=== PATIENT | female | born 1995 | race Caucasian/White ===

== ENCOUNTER 2022-03-08 22:46 | Emergency (ER) | payer MEDICAID, SELFPAY ==
[2022-03-08 22:48] VITALS: BP 152/97; PULSE 97; RESP 18; TEMP 36.5; O2SAT 100; BMI 34.1
--- NOTE | 2022-03-08 23:13 | US_ITS ---
EXAM: US OB. HISTORY: vag bleeding, preg- light brownish spotting just today no pain FINDINGS: An intrauterine possible early gestational sac is identified with mean diameter of 0.29 cm corresponding to a gestational age of 5 weeks and 0 days. A pole and yolk sac are not visualized. The ovaries are normal is size bilaterally. Several small ovarian follicles are present bilaterally. No gross free pelvic fluid. CONCLUSION: Intrauterine possible early gestational sac. A pole is not visualized which could be secondary to early dates. However, ectopic with a pseudosac is not excluded and correlation with serial beta hCG is recommended. Electronically Signed: Prashant East MD at 0:38 EST , US/Transvaginal w/Preg US IMPRESSION: undefined
--- NOTE | 2022-03-08 23:14 | ED.VIS.FEGU ---
HPI HPI - Female History of Present Illness Chief Complaint: Vag Bld, Preg Informant: patient Pain Pain: Positive for Pelvic Pain Onset: Today Context: Gradual Onset Quality: Positive for Aching Location: - (pelvis bilat) Current Severity: Gone Maximum Severity: Mild Worsened by: - (nothing) Relieved by: - (nothing; went away on its own) Bleeding Issue: Positive for Vaginal bleeding Onset: Today Current Severity: Spotting Maximum Severity: Spotting Associated Symptoms P: 0 Narrative Narrative: Patient had a recent positive serum test, her last normal menstrual cycle started on 02/03, however she has a history of polycystic ovarian disease, but assuming these dates are correct she is about 4 weeks along. She has not had an ultrasound yet. She started spotting tonight, she had some pelvic pain earlier that was bilateral but that is gone now. No other systemic symptoms, no urinary symptoms or fevers. [facility] Medical History (Updated 03/09/22 @ 00:[address] Pranav Aaron MD) PCOS (polycystic ovarian syndrome) Allergy/AdvReac Type Severity Reaction Status Date / Time Penicillins Allergy Hives Verified 03/08/22 22:47 Sulfa (Sulfonamide Allergy Hives Verified 03/08/22 22:47 Antibiotics) Social History Smoking Status: Unknown if ever smoked ROS ROS ED Constitutional Constitutional ED: Denies chills or fever(s) Eyes Eyes: Denies change in vision or diplopia ENT ENT ED: Denies rhinorrhea or sore throat Cardiovascular Cardiovascular: Denies chest pain or palpitations Respiratory/Chest Respiratory/Chest: Denies cough or dyspnea Gastrointestinal Gastrointestinal: Reports abdominal pain; Denies diarrhea, nausea or vomiting Genitourinary Genitourinary ED: Reports vaginal bleeding; Denies dysuria, hematuria or urinary frequency Musculoskeletal Musculoskeletal: Denies back pain or neck pain Integumentary Denies abscess or rash Neurologic Neurologic: Denies headache(s), paresthesias or weakness Psychiatric Psychiatric: Denies anxiety or suicidal thoughts EXAM Physical Exam Const Vital Signs: 03/08/22 22:48 Temperature 97.7 F L Temperature Source Temporal Pulse Rate 97 Respiratory Rate 18 Blood Pressure 152/97 H Blood Pressure Mean 115 Pulse Ox 100 Oxygen Delivery Method Room Air Positive well nourished and well developed General Appearance ED: well developed and NAD HEENT Reports moist mucous membranes normocephalic and atraumatic Eyes PERRL and EOMs intact bilaterally Neck full ROM and supple Resp normal respiratory effort and clear to auscultation bilaterally Cardio regular rate, regular rhythm and no murmurs GI non-tender and non-distended Auscultation: normoactive bowel sounds Palpation: soft Speculum Exam - Vagina: vaginal bleeding Back/Spine no CVA tenderness General Back: other FROM Extremity normal to inspection General Extremety ED: Negative for edema, pulses abnormal or tenderness General Extremity: Negative for edema or pulses abnormal Neuro oriented x3, CN's II-XII intact bilaterally and no sensory deficits noted Sensorium / Orientation: awake and alert Motor Exam: strength 5/5 throughout Skin no rashes or lesions noted and no wounds MDM MDM MDM Narrative Medical decision making narrative: Quantitative hCG 921, blood type is O+ so RhoGAM is not indicated. Transvaginal ultrasound was able to be obtained, it shows no definitive intrauterine , possibly an early gestational sac, but no obvious ectopic seen. This patient is to be ruled out for ectopic with a 48-hour repeat quantitative hCG. Discussed with the ASSISTANT WINEMAKER on-call for Raven Lal, we will order the repeat lab to be obtained here and sent to their office and they will contact her with the results and further instructions 2 days from now. Patient is comfortable with that plan, we discussed reasons to return. Lab Data Attestation: I reviewed the patient's lab results. Labs: Laboratory Results - last 24 hr 03/08/22 03/08/22 23:19 23:19 HCG, Quant 921 H Blood Type O POSITIVE Radiography Diagnostic Testing: Clinical Impression(s) from Imaging Studies Obstetrics Ultrasound 03/08/22 23:13 IMPRESSION: undefined Discharge Plan Triage Chief Complaint: Vag Bld, Preg ED Provider: Pranav Aaron Dx/Rx/DC Orders Clinical Impression: , threatened, early Instructions: ED Possible Miscarriage ... Other Ambulatory Orders: hCG Titer Quant., Serum (Routine) Timeframe: 2 Days Facility: [facility] - Location: Laboratory Ordered By: Dr. Pranav Aaron Primary Care Provider: Raven Lal Referrals: Raven Lal CNM [Primary Care Provider] - 2 Days (Will call you with lab results and further instructions on Monday) Disposition Disposition: Home, Self Care Discharge Date/Time: 03/09/22 01:07
[2022-03-08 23:46] LABS: hCG Titer Quant., Serum 921 mIU/mL (1-3)
[2022-03-09 00:46] LABS: Mucous, Urine 0 SEEN /hpf (<or=2+); Red Blood Cells-Urine 0 SEEN /hpf (0-5)
[2022-03-09 00:47] LABS: Color, Urine Yellow (Yellow); Glucose, Dipstick Normal (Normal); Ketone-Dipstick Negative (Negative); Leukocyte Esterase-Dipstick 25 /ul (Negative); Nitrite-Dipstick Negative (Negative); Occult Blood-Urine 10 /ul (Negative); Protein-Dipstick Negative (Negative); Urine Bilirubin Dipstick Negative (Negative); Urine Clarity Clear (Clear); Urine Urobilinogen Normal (Normal)
[2022-03-09 01:07] LABS: Bacteria 1+ /hpf (None Seen); Squamous Epithelial Cells - UA 0-5 SEEN /hpf (5-10); White Blood Cells 0-5 SEEN /hpf (0-5)
== END 2022-03-09 01:07 | disposition home or self-care (01) ==
PROVIDERS: Emergency Provider Emergency Medicine; PCP Advanced Practice Midwife; Visit Provider Emergency Medicine
DX: O20.0 Threatened abortion (principal); Z3A.01 Less than 8 weeks gestation of pregnancy
CPT/HCPCS: 36415; 76817; 81001; 84702; 86900; 86901; 99282

== ENCOUNTER 2022-11-04 09:30 | Inpatient (IN) | payer MEDICAID, SELFPAY ==
[2022-11-04] VITALS (18 sets, daily range): BP systolic 100–138; BP diastolic 57–81; PULSE 76–105; RESP 16–18; TEMP 36.1–36.7; O2SAT 97–100; BMI 38.0
[2022-11-04] MEDS: Lactated Ringers 1,000 ML 999 ML IV (10:05)
[2022-11-04 10:25] LABS: Absolute Lymphocyte Count 1.48 X10^3/uL (0.83-4.51); Absolute Neutrophil Count 6.7 X10^3/uL (2.0-7.7); Basophil# 0.02 X10^3/uL; Basophil% 0.2 % (0-1); Eosinophil# 0.13 X10^3/uL; Eosinophils% 1.4 % (0-5); Hematocrit 35.1 % (37-47); Hemoglobin 11.2 g/dL (12.0-15.0); Lymphocyte # 1.48 X10^3/ul (0.83-4.51); Lymphocyte % 16.2 % (19-41); Mean Corp Hgb Conc 31.9 g/dL (32-36); Mean Corpuscular Hgb 28.2 pg (27.0-32.0); Mean Corpuscular Volume 88.4 fL (81-99); Mean Platelet Vol. 10.9 fl (6.2-12.0); Monocyte# 0.72 X10^3/uL; Monocyte% 7.9 % (0-10); NRBC Flagged by Analyzer 0 % (0-5); Neutrophil # 6.73 X10^3/uL (2.7-7.7); Platelet Count 232 K/mm3 (150-450); RBC Distribution Width CV 12.5 % (11.6-14.6); RBC Distribution Width SD 39.9 fl (35.1-43.9); Red Blood Count 3.97 M/mm3 (4.2-5.4); White Blood Count 9.1 K/mm3 (4.4-11.0)
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
[2022-11-04] MEDS: Acetaminophen 500 MG Tablet 1000 MG PO ×3 (10:39→22:33)
[2022-11-04 11:08] LABS: Syphilis Antibodies Non-reactive
[2022-11-04] MEDS: Lactated Ringers 1,000 ML 150 ML IV (11:10)
[2022-11-04] MEDS: Sodium Citrate/Citric Acid 30 ML UDC PO (11:47)
[2022-11-04] MEDS: Clindamycin 900 MG/50 ML BAG 75 MG IV (12:10)
[2022-11-04] MEDS: Methylergonovine 0.2 MG/ML Ampul IM (12:30)
--- NOTE | 2022-11-04 13:05 | OP.PCM_ITS ---
Problems Associated Problem List Diagnoses (1) Accelerated growth of fetus: (2) History of depression: (3) Mert's thyroiditis: (4) Obesity affecting : (5) Breech presentation: (6) 39 weeks gestation of : Report of Operation Date of Procedure: 11/04/22 Pre-Operative Diagnosis: 39 week gestation, single IUP, ashu breech presentation, accelerated growth of fetus, obesity affecting Post-Operative Diagnosis: As above Surgery/Procedure Performed:: PLTCS via pfannenstiel incision Description of Surgical Findings:: VMI in ashu breech presentation. Clear fluid. Normal appearing placenta. Normal appearing uterus and bilateral adnexa. Apgars 9, 9. Infant weight 9 lb 2 oz. Surgeon: Radha Vargas solar photovoltaic electrician: Pily BANKS Type of Anesthesia: Spinal Special Medications: None Specimen's removed: Placenta Drains: Morales Estimated Blood Loss (mL): 800 Fluids Replaced: 1000 mL Description of Procedure: The patient was taken to the operating room where spinal anesthesia was found be adequate. She was prepped and draped in the dorsal supine position with a leftward tilt. A Pfannenstiel skin incision was made with a scalpel and this was carried down to the underlying layer of fascia. The fascia was incised in midline. The fascia was extended laterally using Mcdonald scissors. The fascia was minimally dissected off of the rectus muscles in a cephalad direction. The rectus muscles were then in the midline. The peritoneum was entered bluntly with good visualization of the bladder. The peritoneal incision was extended bluntly with lateral traction. A bladder blade was inserted. A low transverse incision was made on the uterus with a scalpel. Membranes were ruptured for clear fluid. The buttocks of the infant was delivered through the hysterotomy, followed by the legs and body of the . The arms were then delivered followed by the head which was maintained in a flexed position. A vigorous viable male was delivered without any force or delay. The cord was clamped and cut after a slight delay and the infant was handed off to awaiting nursery staff. The placenta was removed with manual extraction. The uterus was cleared of all clot debris. The uterus was exteriorized. The hysterotomy was closed with 1-0 Vicryl in a running locked fashion. A second imbricating layer using 1-0 Vicryl was performed. Several additional [id number] sutures were placed for hemostasis. Bilateral adnexa were normal-appearing. The uterus was placed back into the abdomen. Brandon was placed over the hysterotomy and lower uterine segment. Hemostasis was noted. This muscles were hemostatic. The fascia was closed with strata fix in a running fashion. The subcutaneous space was irrigated and hemostatic. The subcutaneous space was reapproximated using 3-0 Vicryl. The skin was closed with 4 Monocryl in a subcuticular fashion. A dressing was placed. Instrument, sharp, sponge counts were correct and patient was taken to the recovery room in stable condition. The printer's assistant Pily BANKS was present for the entire case and assisted with draping the patient, delivery of the infant, closure. Grafts/Implants Used: None Procedure Start Time: 12:18 Complications None Admit VTE Documentation VTE Present on Admission: No VTE Mechan Device Prophylaxis: SCD's
[2022-11-04] MEDS: Oxytocin 15 Units/NS 250ml 15 UNITS/250 ML IV.SOLN 83 UNITS IV (13:20)
[2022-11-04] MEDS: Ketorolac 30 MG/ML Syringe IV ×2 (14:03→19:43)
[2022-11-04] MEDS: Lactated Ringers 1,000 ML 100 ML IV (16:28)
[2022-11-04] MEDS: 0.9% Saline Lock 10 ML Syringe IV (19:44)
[2022-11-04] MEDS: SimETHICONE 80 MG Chewable Tablet PO (23:39)
[2022-11-05 01:26] VITALS: RESP 16; O2SAT 99
[2022-11-05] MEDS: Ketorolac 30 MG/ML Syringe IV ×2 (02:17→07:21)
[2022-11-05] MEDS: 0.9% Saline Lock 10 ML Syringe IV ×2 (02:17→07:21)
[2022-11-05] MEDS: Acetaminophen 500 MG Tablet 1000 MG PO ×4 (04:18→22:41)
[2022-11-05 04:21] VITALS: BP 102/58; PULSE 86; RESP 16; TEMP 36.1
[2022-11-05 06:16] LABS: Hematocrit 28.1 % (37-47); Hemoglobin 9.2 g/dL (12.0-15.0); Mean Corp Hgb Conc 32.7 g/dL (32-36); Mean Corpuscular Hgb 28.8 pg (27.0-32.0); Mean Corpuscular Volume 87.8 fL (81-99); Mean Platelet Vol. 10.2 fl (6.2-12.0); Platelet Count 206 K/mm3 (150-450); RBC Distribution Width CV 12.5 % (11.6-14.6); RBC Distribution Width SD 40.2 fl (35.1-43.9); White Blood Count 16.4 K/mm3 (4.4-11.0)
[2022-11-05] MEDS: Levothyroxine 75 MCG Tablet PO (06:16)
--- NOTE | 2022-11-05 07:54 | PN.OBGYN_ITS ---
Subjective Subjective Patient seen at bedside. Feeling well. Pain is controlled with Motrin and Tylenol PO. Patient ambulating and voiding without difficulty. Passing flatus. Denies any CP, SOB or dizziness. Objective Data Objective Data Vital Signs: Vital Signs Temp Pulse Resp BP Pulse Ox O2 Del Method 97 F L 86 16 102/58 L 99 Room Air 11/05/22 04:21 11/05/22 04:21 11/05/22 04:21 11/05/22 04:21 11/05/22 01:26 11/05/22 04:21 Oxygen Delivery Method Room Air Weight: 242 lb 8.136 oz Body Mass Index (BMI) 38.0 Intake & Output: Intake and Output for Last 24 Hours 11/03/22 11/04/22 11/05/22 23:59 23:59 23:59 Intake Total 2311.08 / 2311.08 Output Total 1900 / 1900 1300 / 1300 Balance 411.08 / 411.08 -1300 / -1300 Lab / Micro Data 11/05/22 06:08 Labs: Laboratory Results - last 24 hr 11/04/22 10:05: WBC 9.1, RBC 3.97 L, Hgb 11.2 L, Hct 35.1 L, MCV 88.4, MCH 28.2, MCHC 31.9 L, RDW Std Deviation 39.9, RDW Coeff of Alejandro 12.5, Plt Count 232, MPV 10.9, Immature Gran % (Auto) 0.300, Neut % (Auto) 74.0 H, Lymph % (Auto) 16.2 L, [place] % (Auto) 7.9, Eos % (Auto) 1.4, Baso % (Auto) 0.2, Absolute Neuts (auto) 6.7, Absolute Lymphs (auto) 1.48, Nucleated RBC % 0, Syphilis Total Ab Non- reactive, Blood Type O POSITIVE, Antibody Screen NEGATIVE 11/05/22 06:08: WBC 16.4 H, RBC 3.20 L, Hgb 9.2 L, Hct 28.1 L, MCV 87.8, MCH 28.8, MCHC 32.7, RDW Std Deviation 40.2, RDW Coeff of Alejandro 12.5, Plt Count 206, MPV 10.2 ROS Eyes Eyes: Denies blurry vision, change in vision or spots in vision ENT HEENT: Denies dizziness or headache(s) Cardiovascular Cardiovascular: Denies abdominal pain, chest pain or dyspnea Respiratory/Chest Respiratory/Chest: Denies cough, dyspnea, shortness of breath at rest or shortness of breath with exertion Gastrointestinal Gastrointestinal: Denies abdominal pain, diarrhea or vomiting Genitourinary Genitourinary: Denies change in urinary stream, difficulty urinating or dysuria Musculoskeletal Musculoskeletal: Reports none Integumentary Integumentary: Denies rash Neurologic Neurologic: Denies dizziness, headache(s), memory loss or weakness Physical Exam Const alert and no apparent distress General Appearance: cooperative and comfortable Exam Limitations: no limitations HEENT normocephalic Eyes General Eye: normal appearance of both eyes Neck full ROM General: normal visual inspection Chest Chest: symmetrical chest wall rise Resp normal respiratory effort and normal air movement Effort and Inspection: symmetric chest movement Auscultation: clear to auscultation bilaterally Cardio regular rate and regular rhythm GI normal to inspection, nondistended, normoactive bowel sounds Back/Spine normal ROM Extremity full ROM and no calf tenderness General Extremity: normal exam except as noted Skin no rashes or lesions noted Neuro CN's II-XII intact bilaterally Psych mental status grossly normal Assessment & Plan (1) Status post primary low transverse section: (2) Care and examination of lactating mother: PLAN: Plan POD 1 Primary C/S Pain control Routine care support Anticipate discharge tomorrow
[2022-11-05] MEDS: SimETHICONE 80 MG Chewable Tablet PO (08:48)
[2022-11-05 08:50] VITALS: BP 105/60; PULSE 70; RESP 16; TEMP 36.1; O2SAT 97
--- NOTE | 2022-11-05 09:19 | CASEMGMT ---
Social Work Assessment Labor and Delivery Unit Date/Time of referral: 11/04/22, 10:05am Referred By: Radha Vargas DO Date/Time of Intervention: 11/05/22, 9:00am Reason for referral: Parent recovery substance use(in referral) hx depression and anxiety, not on medications during but managing fine(as per RN) History obtained from: MOB and FOB Household composition: FOB, MOB, and now baby boy Chiki. They have been 2 years, together 8. Parent/guardian status: Both parents are guardians of baby Chiki Medical history: MOB: obesity, sebas's thyroiditis, anxiety and depression, breech presentation Baby: Chiki born 11/[birth year], 12:26pm, Apgars 9 and 9 at one and five minutes. Birthweight 4150 grams Educational Status: MOB: completed high school. FOB: completed 2 years of college Financial Status: No concerns. FOB works in construction. 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 Both parents plan to return to work supplies: They have all needed supplies including diapers, wipes, clothing, car seat, crib, bassinet. MOB plans to breast feed Childcare/Caregivers: Both grandmothers (MOB and FOB's mothers) plan to babysit. This is their first grandchild on both sides of the family. Transportation: They have 2 vehicles. Programs/Agencies Involved: None Children's Services/Legal issues: None Behavioral Health Issues: Substance abuse--MOB and FOB both deny any substance abuse. MOB's mother and FOB's father are both in recovery from alcohol addiction, both have been in recovery for several years. Mental Health--FOB denies any history of mental health concerns. MOB--history of anxiety and depression. She was taking Buspar and Zoloft before , she stopped during . Initially she states it was difficult but she ended up feeling fine. Pt's states she was concerned about going off of the medication but managed fine. Pt already plans to speak w/her PCP about getting back on medication if needed. Additionally, pt is in therapy at [facility] and plans to continue this. depression/Anxiety/Shaken Baby/Safe Sleeping/Help Me Grow/[facility] Resources: SW gave MOB and FOB resources on all of these topics and reviewed them, in particular reviewed information on PPD and anxiety. Assessment: MOB and FOB open w/SW answered all questions. No concerns for homegoing at this time. FOB changing baby's diaper when SW entered room, then swaddled baby and holding baby. Appropriate in care of infant. Plan: Baby Monet to go home w/FOB and MOB at discharge. No further needs anticipated at this time. BONILLA Carrasco
[2022-11-05] MEDS: Senna/Docusate Sodium 1 Tablet PO (10:31)
[2022-11-05] MEDS: Ibuprofen 600 MG Tablet PO ×2 (13:35→19:45)
[2022-11-05 13:55] VITALS: BP 109/59; PULSE 70; RESP 16; TEMP 36.4
[2022-11-05 19:40] VITALS: BP 108/63; PULSE 79; RESP 18; TEMP 36.9; O2SAT 98
[2022-11-05] MEDS: oxyCODONE 5 MG Tablet PO (23:43)
[2022-11-06 02:51] VITALS: BP 109/58; PULSE 64; RESP 16; TEMP 36.6; O2SAT 96
[2022-11-06] MEDS: Ibuprofen 600 MG Tablet PO ×2 (02:53→08:08)
[2022-11-06] MEDS: Acetaminophen 500 MG Tablet 1000 MG PO ×2 (04:44→10:30)
[2022-11-06] MEDS: Levothyroxine 75 MCG Tablet PO (06:37)
[2022-11-06 08:09] VITALS: BP 116/71; PULSE 77; RESP 16; TEMP 36.3; O2SAT 96
--- NOTE | 2022-11-06 10:06 | PCM.DC.SUM ---
Providers Date of Admission: 11/04/22 Reason For Visit: PRIMARY C SECTION Diagnosis Discharge Diagnosis (1) Status post primary low transverse section: Status: Acute Code(s): Z98.891 - History of uterine scar from previous surgery (2) Care and examination of lactating mother: Status: Acute Code(s): Z39.1 - Encounter for care and examination of lactating mother Plan POD 2 Primary C/S Pain control Routine care Support Medications at Discharge Home Medications levothyroxine 75 mcg tablet (Synthroid) 75 mcg PO DAILY hypothyroidism 11/04/22 acetaminophen 500 mg tablet 1,000 mg (2 x 500 mg) PO Q6H #0 tabs 11/06/22 ibuprofen 600 mg tablet 600 mg PO Q6H #0 tabs 11/06/22 oxycodone 5 mg tablet 5 - 10 mg (1 - 2 x 5 mg) PO Q4H PRN PRN Pain Score 4-10 5 days #14 tabs 11/06/22 sennosides 8.6 mg-docusate sodium 50 mg tablet (Stool Softener-Stimulant Laxative) 1 - 2 tab PO DAILY #0 tabs 11/06/22 Hospital Course Operations section Summary of Care Provided Hospital Course: Patient was for a primary section. Hospital course was uneventful. Patient was seen and evaluated by myself for discharge home. Time spent on discharge was <30 minutes. Physical Exam Narrative Dressing is dry and intact Const alert and no apparent distress General Appearance: cooperative and comfortable Exam Limitations: no limitations HEENT normocephalic Eyes General Eye: normal appearance of both eyes Neck full ROM General: normal visual inspection Chest Chest: symmetrical chest wall rise Resp normal respiratory effort and normal air movement Effort and Inspection: symmetric chest movement Auscultation: clear to auscultation bilaterally Cardio regular rate and regular rhythm GI normal to inspection, nondistended, normoactive bowel sounds Back/Spine normal ROM Extremity full ROM and no calf tenderness General Extremity: normal exam except as noted Skin no rashes or lesions noted Neuro CN's II-XII intact bilaterally Psych mental status grossly normal Weight / BMI Weight Weight: 242 lb 8.136 oz Body Mass Index (BMI) 38.0 ABG / Lab / Microbiology Data 11/05/22 06:08 D/C Instructions Discharge Diet: No restrictions May resume sexual activity in: 6-8 weeks Weight Bearing Status: Weight bearing as tolerated Lifting Restrictions: 20 lbs Call your doctor if your incision/area has: Continuous Slow Oozing, Increased Pain/ Swelling, Increased Redness, Foul Smelling Discharge and Swelling at the incision site Call your doctor if you observe: Fever of 101 or Higher, Inability to urinate, Using more than 1 pad per hour, Shortness of breath, Chest pain, Calf discomfort and Uncontrolled pain Remove Dressing in: 5 days Cleanse incision/area with: Soap & Water and Keep Dressing Clean & Dry Please Follow Up With: Raven Lal CNM When: 1 week in office for incision check or sooner if needed 6 weeks Meaningful Use Info Meaningful Use Diagnoses (Choose all that apply): None applicable Discharge Plan Admission Admit Date/Time: 11/04/22 09:30 Primary Reason for Your Visit: Primary Section Attending Provider: Radha Vargas Instructions Patient Instructions: After a Additional Instructions / Restrictions: Continue vitamin. Discharge Orders/Prescriptions Prescriptions: New acetaminophen 500 mg Tablet 1,000 mg PO Q6H Qty: 0 0RF ibuprofen 600 mg Tablet 600 mg PO Q6H Qty: 0 0RF oxycodone 5 mg Tablet 5 - 10 mg PO Q4H PRN PRN (Reason: Pain Score 4-10) 5 Days Qty: 14 0RF sennosides-docusate sodium [Stool Softener-Stimulant Laxat] 8.6-50 mg Tablet 1 - 2 tab PO DAILY Qty: 0 0RF Continued levothyroxine [Synthroid] 75 mcg tablet 75 mcg PO DAILY Discontinued pantoprazole [Protonix] 20 mg tablet,delayed release (DR/EC) 20 mg PO QHS Referrals / Follow Up: Raven Lal CNM [Med Staff - Adv Practice Prof] - Disposition Disposition (needs filled in before D/C Order can be placed): Home, Self Care
[2022-11-06] MEDS: Senna/Docusate Sodium 1 Tablet PO (10:29)
== END 2022-11-06 11:45 | disposition home or self-care (01) | DRG 540 ==
PROVIDERS: Admitting Provider Obstetrics & Gynecology; Visit Provider Obstetrics & Gynecology
PROC: 10D00Z1 Extraction of Products of Conception, Low, Open Approach (ICD-10-PCS; CPT 59514; principal; 2022-11-04 11:45)
DX: O32.1XX0 Maternal care for breech presentation, not applicable or unspecified (principal); O99.214 Obesity complicating childbirth; E06.3 Autoimmune thyroiditis; K21.9 Gastro-esophageal reflux disease without esophagitis; O99.62 Diseases of the digestive system complicating childbirth; O99.284 Endocrine, nutritional and metabolic diseases complicating childbirth; O36.63X0 Maternal care for excessive fetal growth, third trimester, not applicable or unspecified; Z79.899 Other long term (current) drug therapy; Z37.0 Single live birth; Z3A.39 39 weeks gestation of pregnancy
CPT/HCPCS: 59025; 85025; 85027; 86780; 86850; 86900; 86901; 99221; J7120; A4216; G0378; J2405